=== PATIENT | female | born 1970 | race Caucasian/White ===

== ENCOUNTER 2021-01-04 17:08 | Emergency (ER) | payer OTHER ==
[2021-01-04 21:29] LABS: BUN/CREATININE RATIO 14 (0-10)
[2021-01-04 21:35] LABS: HEMOGLOBIN 13.8 gm/dl (12.3-15.3); RED BLOOD COUNT 4.56 M/UL (4.00-5.10); WHITE BLOOD COUNT 7.4 K/UL (4.5-11.0)
[2021-01-04] MEDS ORDERED: PROTONIX40 MG PO (22:32)
[2021-01-04] MEDS ORDERED: ZOFRAN4 MG PO (22:32)
== END 2021-01-04 22:50 | disposition home or self-care (01) ==
LOC: ER1 17:08
PROVIDERS: Preventive Medicine Occupational Medicine
DX: K80.50 Calculus of bile duct without cholangitis or cholecystitis without obstruction (principal)
CPT/HCPCS: 36415; 80053; 81001; 83690; 85025; 85652; 86140; 87086; 96374; 96375; 99284; C9113; J2405; Q9967